=== PATIENT | female | born 1955 | race Caucasian/White ===

== ENCOUNTER 2017-07-10 14:06 | Emergency (ER) | payer BC, OTHER | END 2017-07-10 15:36 | disposition left against medical advice (07) | LOC: ER 14:06 | DX: M79.673 Pain in unspecified foot (principal); Z53.21 Procedure and treatment not carried out due to patient leaving prior to being seen by health care provider; W18.39XA Other fall on same level, initial encounter; Y93.89 Activity, other specified; Y92.89 Other specified places as the place of occurrence of the external cause; Y99.8 Other external cause status ==